=== PATIENT | male | born 1975 | race Caucasian/White ===

== ENCOUNTER 2020-10-26 10:09 | Emergency (ER) | payer SELFPAY ==
[2020-10-26 10:15] VITALS: BP 135/103; PULSE 94; RESP 16; TEMP 36.3; O2SAT 100; BMI 24.4
--- NOTE | 2020-10-26 10:31 | ED_ITS ---
HPI - Extremity Problem General: Chief complaint: Extremity Injury, Upper Stated complaint: Shoulder Pain Time Seen by Provider: 10/26/20 10:19 History of Present Illness: HPI Narrative: Patient comes in with left shoulder discomfort. Patient reports stacking wood yesterday and thinks he might of strained his shoulder. Patient has discomfort in the left shoulder and in the left side of his neck. Patient is guarded with range of motion of the neck. Patient denies any fall or other injury. Patient reports pain was worse this morning. Review of Systems General: Reports: 10 or more systems reviewed and unremarkable except in HPI and below Musc: Reports: neck pain and extremity pain Physical Exam Const: COMMON NORMALS: no acute distress and patient oriented x3 GENERAL APPEARANCE: cooperative HENMT: COMMON NORMALS: normocephalic, TM's normal bilaterally and Normal external nose present HEAD & SCALP: normal to inspection and normocephalic NOSE: Normal external nose present TYMPANIC MEMBRANE: TM's normal bilaterally MOUTH: Normal oral and palatal mucosa present Eye: GENERAL EYE: appearance normal, both eyes and all related structures Neck/C-Spine: COMMON NORMALS: full ROM (Guarded rotation to the left.) OTHER: Muscle tenderness to the left paraspinous muscles. Chest: COMMONS NORMALS: normal inspection of the chest Resp: COMMON NORMALS: normal respiratory effort EFFORT & INSPECTION: Yes able to speak in complete sentences Cardio: COMMON NORMALS: regular rate and regular rhythm RATE: regular rate RHYTHM: regular rhythm GI: COMMON NORMALS: non-tender : COMMON NORMALS: Yes no CVA tenderness BLADDER/KIDNEY EXAM: Yes no CVA tenderness Back/Pelvis: COMMON NORMALS: no CVA tenderness and thoracic and lumbar spine normal to inspection Extremity: NARRATIVE EXTREMITY EXAM: Normal range of motion of the left shoulder, mild tenderness in the trapezius. Neuro: COMMON NORMALS: patient oriented x3 and moves all extremities Psych: COMMON NORMALS: mental status grossly normal and cooperative Skin: COMMON NORMALS: no rashes or lesions noted GENERAL SKIN EXAM: no rashes or lesions noted Course Vital Signs: Vital signs: Vital Signs Temperature 97.3 F L 10/26/20 10:15 Pulse Rate 94 10/26/20 10:15 Respiratory Rate 16 10/26/20 10:15 Blood Pressure 135/103 10/26/20 10:15 Pulse Oximetry 100 12/15/20 10:15 MDM - Extremity (Nontraumatic) MDM Narrative: Medical decision making narrative: Patient presents with left side neck and left shoulder pain. Distal pulses and sensation is intact. Exam otherwise is normal. Differential diagnosis includes muscle strain, cervical radiculopathy, rotator cuff injury. Suspect muscle strain due to patient's activity followed by rest. Recommended gentle range of motion and stretching exercises. Patient was prescribed ketorolac and cyclobenzaprine. Patient was given injection of ketorolac and orphenadrine in the emergency room. Encourage plenty of fluids and follow-up with primary care for further evaluation. Patient reported understanding. Discharge Plan Discharge Patient Disposition: Home Clinical Impression: Left shoulder strain Qualifiers: Encounter type: initial encounter Qualified Code(s): S46.912A - Strain of unspecified muscle, fascia and tendon at shoulder and upper arm level, left arm, initial encounter Condition: Stable Prescriptions: New ketorolac 10 mg tablet 10 mg PO Q6H PRN (Reason: pain) 3 Days Qty: 12 RF: 0 cyclobenzaprine 5 mg tablet 5 mg PO TID PRN (Reason: muscle spasm) Qty: 20 RF: 0 Discharge Orders: Discharge ED (Routine); Ordered 10/26/20 Ordered By: Michael Toledo Discharge Diet: Usual diet Discharge Activity: Increase activity as tolerated Patient Instructions: Muscle Strain (ED) Activity Restrictions/Additional Instructions: Activity as tolerated. Gentle stretching and range of motion exercises. Muscle rub or liniment for further comfort relief. Ice pack or heat for further comfort. Follow-up with primary care as needed. Return to the emergency department for new concerns. Stand Alone Forms: Work/School Release Coding Level of Care Code ED Nursing Agency Manager for Fanny Cardoza
[2020-10-26] MEDS: orphenadrine 30 mg/mL Inj 2 mL 60 MG IM (10:33)
[2020-10-26] MEDS: ketorolac 30 mg/mL INJ IM (10:34)
[2020-10-26 10:40] VITALS: BP 135/105; PULSE 103; RESP 18; O2SAT 99
== END 2020-10-26 10:45 | disposition home or self-care (01) ==
PROVIDERS: Emergency Provider Nurse Practitioner Family
DX: S46.912A Strain of unspecified muscle, fascia and tendon at shoulder and upper arm level, left arm, initial encounter (principal); X50.9XXA Other and unspecified overexertion or strenuous movements or postures, initial encounter
CPT/HCPCS: 12345; 96372; 99281; 99283; J1885; J2360

== ENCOUNTER 2024-06-17 09:49 | Inpatient (IN) | payer SELFPAY ==
--- NOTE | 2024-06-17 09:58 | ED_ITS ---
HPI - Alcohol 2 General: Chief Complaint: Alcohol Stated Complaint: ETOH N/V Time Seen by Provider: 06/17/24 09:51 Source: patient and EMS Mode of arrival: EMS Limitations: no limitations History of Present Illness: Patient is a 48-year-old male who presents to ED today for evaluation of alcohol withdrawal . States he is a longstanding alcoholic. Patient states he has been on a nguyễn over the past week after his left him. He states he is currently homeless. He states his last drink was this morning but feels like he is currently withdrawing. He was given Zofran en route by EMS and is not currently having any vomiting at the time of my examination. When asked, patient tells me he feels suicidal with a plan to jump off of a bridge. 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 Chronic alcohol use: Yes Previous visits for alcohol intoxication: No Recent trauma: No Associated symptoms: Reports no associated symptoms, depression, nausea and suicidal ideation; Deny abdominal pain or vomiting Treatments prior to arrival: anti-emetics Review of Systems 2 Const: Denies: fever(s), chills, body aches, fatigue or malaise Eyes: Denies: change in vision, blurry vision, photophobia, floaters or seeing flashes Card: Denies: chest pain Resp: Denies: dyspnea GI: Reports: nausea; Denies: abdominal pain, vomiting or diarrhea Musc: Denies: neck pain, back pain, extremity pain or joint pain Skin/Breast: Denies: rash Neuro: Denies: headache(s), numbness in extremities, weakness in extremities, sensory changes or dizziness Psych: Reports: anxiety, depression, hopelessness and suicidal ideation; Denies: visual hallucinations, auditory hallucinations or homicidal ideation Physical Exam 2 Const: COMMON NORMALS: no acute distress, average body habitus, patient oriented x3, no limitations and alert GENERAL APPEARANCE: cooperative and well developed ORIENTATION/CONSCIOUSNESS: Yes awake, Yes oriented to person, Yes oriented to place and Yes oriented to time HENMT: COMMON NORMALS: normocephalic and atraumatic HEAD & SCALP: n ormocephalic and atraumatic Eye: COMMON NORMALS: no scleral icterus Neck/C-Spine: COMMON NORMALS: full ROM, no lymphadenopathy, supple and no meningeal signs Chest: COMMONS NORMALS: normal inspection of the chest Resp: COMMON NORMALS: normal respiratory effort and clear to auscultation bilaterally AUSCULTATION: clear to auscultation bilaterally Cardio: COMMON NORMALS: regular rate and regular rhythm RATE: regular rate RHYTHM: regular rhythm GI: COMMON NORMALS: Normal to inspection, nondistended, normoactive bowel sounds present, Soft to palpation, non-tender, No hepatosplenomegaly present and no masses PALPATION: Yes Soft to palpation and Yes No hepatosplenomegaly present : COMMON NORMALS: Yes no CVA tenderness BLADDER/KIDNEY EXAM: Yes no CVA tenderness Back/Pelvis: COMMON NORMALS: no CVA tenderness and thoracic and lumbar spine normal to inspection Extremity: COMMON NORMALS: normal to inspection Neuro: RHINA COMA SCALE: document GCS findings [place] coma scale eye opening: Spontaneous Rhina coma scale verbal response: Orientated [place] coma scale motor response: Obey commands Rhina coma scale total score: 15 COMMON NORMALS: patient oriented x3, moves all extremities, no focal motor deficits and no sensory deficits noted SENSORIUM/ORIENTATION: Yes alert, Yes oriented to person, Yes oriented to place and Yes oriented to time MENINGEAL SIGNS: Yes no meningeal signs Psych: COMMON NORMALS: Normal thought process present, cooperative, speech normal, denies hallucinations and denies homicidal ideation ATTITUDE: Yes calm ACTIVITY/MOTOR BEHAVIOR: Yes appropriate eye contact SPEECH: Yes normal speech MOOD & AFFECT: Yes euthymic mood THOUGHT PROCESS: Normal thought process present THOUGHT CONTENT: Yes Suicidality present A TTENTION/CONCENTRATION: Yes attention grossly intact and Yes concentration grossly intact MEMORY/COGNITION: Yes memory grossly intact and Yes cognition grossly intact INSIGHT: Fair insight present (Psych) JUDGEMENT: Fair judgement present (Psych) Skin: COMMON NORMALS: no rashes or lesions noted GENERAL SKIN EXAM: no rashes or lesions noted Course 2 Consultations: Consultation #1: Dr. Abarca-accepts to NPU Consultation #2: Dr. Barksdale-discussed possibility of medical admit vs treating him with fluids/electrolyte replacement for alcoholic ketoacidosis; felt like we could give fluids here and repeat anion gap and see if this is improving; reassurance provided with his ABG Vital Signs: Vital signs: Vital Signs Temperature 97.9 F 06/17/24 10:14 Pulse Rate 114 H 06/17/24 14:26 Respiratory Rate 18 06/17/24 10:14 Blood Pressure 143/97 06/17/24 10:14 Pulse Oximetry 98 06/17/24 14:26 Oxygen Delivery Me thod Room Air 06/17/24 14:26 MDM - Alcohol Medical Decision Making Patient with chronic alcohol abuse as well as depression and suicidal ideations. He will be admitted to NPU. Most likely will need [facility] protocol for alcohol withdrawal. On his initial blood work he did have a significantly elevated anion gap (27.4) along with positive serum ketones concerning for alcoholic ketoacidosis. Ran case by Dr. Mesa as well as hospitalist Dr. Barksdale who felt we most likely could treat with fluids and electrolyte replacement here in the emergency department and repeat labs. He was given 2 g of magnesium as well as oral potassium. Repeat BMP showing his gap is now down to 20.8. Potassium elevated. He is cleared medically for NPU. Will place affidavit on chart. Medical Records I reviewed the patient's medical records. Lab Data I reviewed the patient's lab results. 06/17/24 13:18 06/17/24 15:40 Laboratory Results WBC 7.45 10^3/uL (3.29-11.43) 06/17/24 13:18 RBC 5.04 10^6/uL (3.85-5.65) 06/17/24 13:18 Hgb 15.10 g/dL (11.27-16.99) 06/17/24 13:18 Hct 42.2 % (37-53) 06/17/24 13:18 MCV 83.7 fl (82-101) 06/17/24 13:18 MCH 30.0 pg (27-33) 06/17/24 13:18 MCHC 35.8 g/dL (30-55) 06/17/24 13:18 RDW 13.2 % (12.1-15.1) 06/17/24 13:18 Plt Count 248 10^3/cmm (157-399) 06/17/24 13:18 MPV 9.8 fL (7.4-10.4) 06/17/24 13:18 Neut % (Auto) 77.5 % 06/17/24 13:18 Lymph % (Auto) 18.9 % 06/17/24 13:18 Walton % (Auto) 1.7 % 06/17/24 13:18 Eos % (Auto) 1.6 % 06/17/24 13:18 Baso % (Auto) 0.3 % 06/17/24 13:18 Neut # (Auto) 5.77 10^3/uL (1.8-7.7) 06/17/24 13:18 Lymph # (Auto) 1.4 10^3/uL (0.8-4.8) 06/17/24 13:18 Walton # (Auto) 0.1 10^3/uL (0.2-0.9) L 06/17/24 13:18 Eos # (Auto) 0.1 10^3/uL (0.0-0.8) 06/17/24 13:18 Baso # (Auto) 0.0 10^3/uL (0.0-0.1) 06/17/24 13:18 Nucleated RBC % (auto) 0 % 06/17/24 13:18 Nucleated RBCs # 0.0 /100WBC 06/17/24 13:18 Specimen Type Arterial 06/17/24 14:05 Sample Site Brachial, left 06/17/24 14:05 ABG pH 7.50 (7.35-7.45) H 06/17/24 14:05 ABG pCO2 29.4 mmHg (35-45) L 06/17/24 14:05 ABG pO2 96.6 mmHg (80.0-100.0) 06/17/24 14:05 ABG PO2/FiO2 Ratio 460 06/17/24 14:05 ABG HCO3 22.9 mmol/L (22-26) 06/17/24 14:05 ABG O2 Saturation 98.5 06/17/24 14:05 ABG Base Excess 0.8 mmol/L (-2.0-2.0) 06/17/24 14:05 Mateusz Test N/a 06/17/24 14:05 A-a O2 Gradient 1.9 mmHg (5-10) L 06/17/24 14:05 Hematocrit 45.4 % (42-52) 06/17/24 14:05 Hgb O2 Saturation 97.1 % (95-100) 06/17/24 14:05 Carboxyhemoglobin 1.2 %THgb (0.4-20.1) 06/17/24 14:05 Methemoglobin 0.2 % (0.4-1.5) L 06/17/24 14:05 Total Hemoglobin 14.8 g/dL (14-18) 06/17/24 14:05 Sodium 136.0 mmol/L (131-143) 06/17/24 14:05 Potassium 3.2 mmol/L (3.5-5.0) L 06/17/24 14:05 Glucose 123.0 mg/dL (70-115) H 06/17/24 14:05 Ionized Calcium 1.1 mmol/L (1.1-1.4) 06/17/24 14:05 O2 Delivery Device Room air 06/17/24 14:05 FiO2 21.0 % 06/17/24 14:05 Knuckler ID Amh 06/17/24 14:05 Sodium 135 mmol/L (136-145) L 06/17/24 15:40 Potassium 3.8 mmol/L (3.5-5.1) 06/17/24 15:40 Chloride 97 mmol/L (98-107) L 06/17/24 15:40 Carbon Dioxide 21 mmol/L (22-29) L 06/17/24 15:40 Anion Gap 20.8 (5-19) H 06/17/24 15:40 BUN 19 mg/dL (6-20) 06/17/24 15:40 Creatinine 0.9 mg/dL (0.7-1.2) 06/17/24 15:40 GFR Calculation 90.4 mL/min (90-130) 06/17/24 15:40 Glucose 82 mg/dL (65-115) 06/17/24 15:40 Calculated Osmolality 281 mOsm/kg (285-295) L 06/17/24 15:40 Calcium 8.4 mg/dL (8.5-10.5) L 06/17/24 15:40 Magnesium 1.3 mg/dL (1.7-2.3) L 06/17/24 13:18 Total Bilirubin 0.4 mg/dL (0.15-1.2) 06/17/24 13:18 AST 37 U/L (0-40) 06/17/24 13:18 ALT 25 U/L (0-41) 06/17/24 13:18 Alkaline Phosphatase 107 U/L (40-130) 06/17/24 13:18 Total Protein 6.8 g/dL (6.6-8.7) 06/17/24 13:18 Albumin 4.0 g/dL (3.5-5.2) 06/17/24 13:18 Globulin 2.8 g/dL (1.3-4.6) 06/17/24 13:18 Salicylates < 0.3 mg/dL (3-10) L 06/17/24 13:18 Urine Opiates Screen Negative ng/mL (Negative) 06/17/24 12:17 Acetaminophen < 5.0 ug/mL (10-30) L 06/17/24 13:18 Ur Barbiturates Screen Negative ng/mL (Negative) 06/17/24 12:17 Ur Phencyclidine Scrn Negative ng/mL (Negative) 06/17/24 12:17 Ur Amphetamines Screen Negative ng/mL (Negative) 06/17/24 12:17 U Benzodiazepines Scrn Negative ng/mL (Negative) 06/17/24 12:17 Urine Cocaine Screen Negative ng/mL (Negative) 06/17/24 12:17 U Marijuana (THC) Screen Positive ng/mL (Negative) H 06/17/24 12:17 Ethyl Alcohol 153 mg/dL (0-10) H 06/17/24 13:18 Serum Ketones Positive (Negative) H 06/17/24 13:18 No radiology studies performed this visit Discharge Plan Discharge Patient Disposition: Admitted As Inpatient Clinical Impression: Chronic alcohol abuse, Alcoholic ketoacidosis, Suicidal ideation, Homeless Condition: Stable Prescriptions: No Action No Known Home Medications Coding Level of Care Code ED Dynamic Balancer for Fanny Cardoza
--- NOTE | 2024-06-17 09:59 | ECG_ITS ---
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 Measurements Intervals [place] Rate: 78 P: 55 SD: 138 QRS: 58 QRSD: 77 T: 29 QT: 395 QTc: 450 Interpretive Statements SINUS RHYTHM No previous ECG available for comparison Electronically Signed On 06-17-2024 14:58:49 CDT by Agus Duran M.D. [id number]
[2024-06-17 10:14] VITALS: BP 143/97; PULSE 86; RESP 18; TEMP 36.6; O2SAT 99; BMI 29.2
[2024-06-17] MEDS: sodium chloride 0.9% 1,000 ML 999 ML IV ×2 (10:52→14:22)
[2024-06-17] MEDS: multivitamin therapeutic Tablet 1 TAB PO (10:54)
--- NOTE | 2024-06-17 10:54 | PC.PHAR ---
NO MEDS ON PT PROFILE, LAST MED FILLED IN 2019 FOR FLEXERIL 10MG
[2024-06-17 12:40] LABS: Amphetamines Screen Urine Negative (Negative); Barbiturates Screen Urine Negative (Negative); Benzodiazepines Screen Urine Negative (Negative); Cocaine Screen Urine Negative (Negative); Opiate Screen Urine Negative (Negative); PCP Screen Urine Negative (Negative); THC Screen Urine Positive (Negative)
[2024-06-17] MEDS: metoclopramide 5 mg/mL SDV 2 mL 10 MG IVP (13:07)
[2024-06-17 13:35] LABS: Basophils % 0.3 %; Eosinophils # 0.1 10^3/uL (0.0-0.8); Eosinophils % 1.6 %; Hematocrit 42.2 % (37-53); Lymphocytes # 1.4 10^3/uL (0.8-4.8); Lymphocytes % 18.9 %; Mean Corpuscular HGB Conc 35.8 g/dL (30-55); Mean Corpuscular Volume 83.7 fl (82-101); Mean Platelet Volume 9.8 fL (7.4-10.4); Monocytes # 0.1 10^3/uL (0.2-0.9); Monocytes % 1.7 %; Neutrophils # 5.77 10^3/uL (1.8-7.7); Neutrophils % 77.5 %; Nucleated Red Blood Cells % 0 %; Platelet Count 248 10^3/cmm (157-399); Red Blood Count 5.04 10^6/uL (3.85-5.65); Red Cell Distribution Width 13.2 % (12.1-15.1); White Blood Count 7.45 10^3/uL (3.29-11.43)
[2024-06-17 13:43] LABS: Alanine Aminotransferase 25 U/L (0-41); Alcohol Level 153 mg/dL (0-10); Alkaline Phosphatase 107 U/L (40-130); Anion Gap 27.4 (5-19); Aspartate Amino Transferase 37 U/L (0-40); Blood Urea Nitrogen 20 mg/dL (6-20); Calcium 8.6 mg/dL (8.5-10.5); Carbon Dioxide 17 mmol/L (22-29); Chloride 95 mmol/L (98-107); Creatinine Clr Calc Pharmacy 119.5245; Globulin 2.8 g/dL (1.3-4.6); Glomerular Filtration Rate 90.4 mL/min (90-130); Glucose 152 mg/dL (65-115); Osmolality Calculated 288 mOsm/kg (285-295); Potassium 3.4 mmol/L (3.5-5.1); Sodium 136 mmol/L (136-145); Total Bilirubin 0.4 mg/dL (0.15-1.2); Total Protein 6.8 g/dL (6.6-8.7)
[2024-06-17 13:46] LABS: Acetaminophen < 5.0 ug/mL (10-30); Salicylate < 0.3 mg/dL (3-10)
[2024-06-17 14:10] LABS: Ketone (Acetest) Serum Positive (Negative)
[2024-06-17 14:16] LABS: Blood Gas Operator Identificat AMH; Blood Gas Sample Site Brachial, left; Blood Gas Sample Type Arterial; Oxygen Device ROOM AIR
[2024-06-17 14:18] LABS: ABG PCO2 29.4 mmHg (35-45); Alveolar-Arterial Oxygen Gradi 1.9 mmHg (5-10); Arterial Blood Gas Hematocrit 45.4 % (42-52); Base Excess ABG 0.8 mmol/L (-2.0-2.0); Carboxyhemoglobin 1.2 %THgb (0.4-20.1); HCO3 ABG 22.9 mmol/L (22-26); HGB O2 Sat 97.1 % (95-100); Ionized Calcium Level - ABG 1.1 mmol/L (1.1-1.4); Methemoglobin 0.2 % (0.4-1.5); Oxygen Saturation ABG 98.5; PO2 ABG 96.6 mmHg (80.0-100.0); PO2 FiO2 Ratio Arterial Blood 460; Potassium Level - ABG 3.2 mmol/L (3.5-5.0); Total Hemoglobin 14.8 g/dL (14-18)
[2024-06-17] MEDS: potassium chloride ER 20 mEq Tablet 40 MEQ PO (14:22)
[2024-06-17 14:24] LABS: Magnesium 1.3 mg/dL (1.7-2.3)
[2024-06-17 14:26] VITALS: PULSE 114; O2SAT 98
[2024-06-17] MEDS: magnesium sulfate premix 2 GM/50 ML PIGGYBACK IV (14:50)
[2024-06-17] MEDS: LORazepam 2 mg/mL INJ 1 mL 1 MG IVP (14:50)
[2024-06-17 16:18] LABS: Blood Urea Nitrogen 19 mg/dL (6-20); Calcium 8.4 mg/dL (8.5-10.5); Carbon Dioxide 21 mmol/L (22-29); Chloride 97 mmol/L (98-107); Creatinine Clr Calc Pharmacy 119.5245; Glomerular Filtration Rate 90.4 mL/min (90-130); Glucose 82 mg/dL (65-115); Osmolality Calculated 281 mOsm/kg (285-295); Sodium 135 mmol/L (136-145)
[2024-06-17 16:21] LABS: Anion Gap 20.8 (5-19); Potassium 3.8 mmol/L (3.5-5.1)
[2024-06-17 19:19] VITALS: BP 129/88; PULSE 80; RESP 15; TEMP 36.4; O2SAT 99
[2024-06-17] MEDS: ondansetron 4 MG Tablet PO (19:46)
[2024-06-17 20:00] VITALS: BP 128/81; PULSE 68; RESP 15; TEMP 36.3; O2SAT 99
[2024-06-17] MEDS: LORazepam 2 mg Tablet PO (20:06)
[2024-06-17] MEDS: trazodone 50 mg Tablet PO (20:06)
[2024-06-17] MEDS: hyDROXYzine 25 mg Capsule 50 MG PO (20:41)
[2024-06-17 20:49] VITALS: BP 128/81; PULSE 68; RESP 15; TEMP 36.3; O2SAT 99
[2024-06-18] VITALS: BP 120/70; PULSE 66; RESP 15; TEMP 36.6; O2SAT 98
[2024-06-18 04:00] VITALS: BP 127/72; PULSE 77; RESP 15; TEMP 36.7; O2SAT 97
[2024-06-18] MEDS: ondansetron 4 MG Tablet PO (06:11)
[2024-06-18] MEDS: LORazepam 2 mg Tablet PO ×2 (06:11→09:09)
[2024-06-18 08:00] VITALS: BP 130/77; PULSE 65; RESP 18; TEMP 36.4; O2SAT 99
[2024-06-18] MEDS: multivitamin therapeutic Tablet 1 TAB PO (09:09)
[2024-06-18] MEDS: folic acid 1 mg Tablet PO (09:09)
[2024-06-18] MEDS: thiamine 100 mg Tablet PO (09:09)
[2024-06-18 12:00] VITALS: BP 123/92; PULSE 87; RESP 18; TEMP 36.6; O2SAT 97
[2024-06-18] MEDS: sertraline 50 mg Tablet PO (15:46)
[2024-06-18 16:00] VITALS: BP 144/92; PULSE 79; RESP 18; TEMP 37.2; O2SAT 97
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
[2024-06-18 20:00] VITALS: BP 117/66; PULSE 68; RESP 15; TEMP 36.7; O2SAT 95
[2024-06-18] MEDS: quetiapine 100 mg Tablet 200 MG PO (20:21)
[2024-06-19] VITALS: BP 127/82; PULSE 79; RESP 14; O2SAT 96
[2024-06-19 04:00] VITALS: BP 127/82; PULSE 73; RESP 13; O2SAT 95
[2024-06-19] MEDS: sertraline 50 mg Tablet PO (08:52)
[2024-06-19] MEDS: ondansetron 4 MG Tablet PO (08:52)
[2024-06-19] MEDS: thiamine 100 mg Tablet PO (08:53)
[2024-06-19] MEDS: folic acid 1 mg Tablet PO (08:53)
[2024-06-19] MEDS: multivitamin therapeutic Tablet 1 TAB PO (08:53)
[2024-06-19] MEDS: ibuprofen 600 mg Tablet PO (08:55)
[2024-06-19] MEDS: alum-mag-hydroxide-sime 30 mL UDC PO (13:45)
[2024-06-19 14:00] VITALS: BP 164/96; PULSE 64; RESP 16; TEMP 36.4; O2SAT 96
--- NOTE | 2024-06-19 14:35 | W.PM.NPUPNS ---
Subjective NPU Subjective: 48-year-old male admitted with significant issues with alcohol abuse and reports of suicidal ideation. The patient had reported continued depression. He reported that he had remained homeless but reported desire to potentially go to [facility] in [place] for further help with housing and to consider additional help for substance abuse issues. He reported no side effects from Zoloft and Seroquel. He had been compliant on the milieu. He was agreeable to considering medications to reduce his cravings for alcohol. He had reported having difficulties with remaining abstinence despite prior consequences from continued alcohol use. Mental Status Exam MSE Comments: Casually dressed white male with fair hygiene and normal gait with no evidence of any abnormal involuntary motor movements tics or tremors appreciated. His speech was normal in regards to rate rhythm and prosody. His thought process was linear logical and goal-directed. His thought content: He denied any homicidal or suicidal ideation. He did not appear to be responding to internal stimuli. He was alert and oriented to person place time and situation. There was evidence of mild psychomotor retardation. His mood was described as depressed. His affect was restricted in range and mood congruent. There was no evidence of delusional thinking. His recent ,remote memory were grossly intact. His insight was limited. His judgment was poor. His impulse control appeared poor as well. Vitals/I&O/Wt Last Vital Signs Temp 97.5 F L 06/19/24 14:00 Pulse 64 06/19/24 14:00 Resp 16 06/19/24 14:00 BP 164/96 06/19/24 14:00 Pulse Ox 96 06/19/24 14:00 O2 Del Method Room Air 06/19/24 04:00 Data NPU 06/17/24 13:18 06/17/24 15:40 A&P Assessment and plan (1) Depression, unspecified: (2) Chronic alcohol abuse: (3) Suicidal ideation: Plan 48-year-old white male with history of alcohol dependence admitted with depression and suicidal ideation with a history of significant alcohol related withdrawal symptoms. #1.? Engage patient in individual milieu and group therapy.? #2? Encourage sober living treatment after discharge at the highest level of care to which he is willing to commit. #3??? CIWA for alcohol withdrawal #4?? TO-15 minute checks? #5?? Continue zoloft 50mg daily, continue seroquel 200mg at night and add naltrexone 50mg daily. Involuntary Hold Information 96 Hour Hold: 96 Hour Involuntary Admission: No Attestations NPU Medical Necessity Statement*: Inpatient hospitalization is medically necessary and deemed to ?be ?the clinically appropriate intervention ?at this time.? We will monitor/initiate medications and make changes as indicated.? The patient?s likely length of stay 4-6 days. Coding Level of Care Code Acute Code for [facility] Fwd Diagnoses Depression, unspecified F32.A Chronic alcohol abuse F10.10 Suicidal ideation R45.851
[2024-06-19] MEDS: naltrexone hcl 50 mg Tablet PO (14:58)
[2024-06-19] MEDS: quetiapine 100 mg Tablet 200 MG PO (20:15)
[2024-06-19] MEDS: hyDROXYzine 25 mg Capsule 50 MG PO (20:15)
[2024-06-19] MEDS: trazodone 50 mg Tablet PO ×2 (20:15→22:18)
[2024-06-19 20:37] VITALS: BP 160/98; PULSE 80; RESP 18; TEMP 36.6; O2SAT 98
[2024-06-20 06:00] VITALS: BP 138/73; PULSE 68; RESP 18; TEMP 36.8; O2SAT 97
[2024-06-20] MEDS: naltrexone hcl 50 mg Tablet PO (08:42)
[2024-06-20] MEDS: folic acid 1 mg Tablet PO (08:43)
[2024-06-20] MEDS: multivitamin therapeutic Tablet 1 TAB PO (08:43)
[2024-06-20] MEDS: thiamine 100 mg Tablet PO (08:43)
[2024-06-20] MEDS: sertraline 50 mg Tablet PO (08:43)
[2024-06-20] MEDS: ondansetron 4 MG Tablet PO (09:36)
[2024-06-20] MEDS: alum-mag-hydroxide-sime 30 mL UDC PO (10:23)
--- NOTE | 2024-06-20 12:31 | P.NPUPN_ITS ---
Subjective NPU 2 Subjective: Patient presented today reporting that he is doing okay. He continues to work with the social work team on aftercare and possible sober living possibilities. He did have 1 come up but is not till next . We discussed continuing to look in the possibility of discharge on Sunday. He denies any side effects to medications. Mental Status Exam 2 MSE Comments: This is an overweight versus obese white male in hospital scrubs with limited grooming and eye contact. No abnormal movements except for mild psychomotor retardation. Cooperative with exam and mild to moderate distress. Speech was mostly normal rate and volume. Mood described as getting better, affect slightly subdued. Thought process mostly organized. Thought content: Patient denied current suicidal or homicidal ideation, there were no delusions reported or noted, he denies any auditory or visual hallucinations. Attention and concentration appeared intact and memory appear reliable but no more formally tested. He is alert and oriented x 3. Insight and judgment appeared fair and impulse control was improving. Vitals/I&O/Wt Last Vital Signs Temp 98.2 F 06/20/24 06:00 Pulse 68 06/20/24 06:00 Resp 18 06/20/24 06:00 BP 138/73 06/20/24 06:00 Pulse Ox 97 06/20/24 06:00 O2 Del Method Room Air 06/20/24 06:00 Data NPU 06/17/24 13:18 06/17/24 15:40 A&P Assessment and plan (1) Depression, unspecified: (2) Chronic alcohol abuse: (3) Suicidal ideation: Plan 48-year-old white male with history of alcohol dependence admitted with depression and suicidal ideation with a history of significant alcohol related withdrawal symptoms. #1.? Engage patient in individual milieu and group therapy.? #2? Encourage sober living treatment after discharge at the highest level of care to which he is willing to commit. #3???CIWA for alcohol withdrawal #4?? TO-15 minute checks? #5?? Continue zoloft 50mg daily, continue seroquel 200mg at night and add naltrexone 50mg daily. #6 Patient with a secured date for 06/26/2024 for sober living but is looking at options that may have him discharging on Sunday. Involuntary Hold Information 2 96 Hour Hold: 96 Hour Involuntary Admission: No Attestations NPU 2 Medical Necessity Statement*: Inpatient hospitalization is medically necessary and the clinically appropriate intervention ?at this time.? We will monitor/initiate medications and make changes as indicated.? The patient?s likely length of stay 3-5 days. Coding Level of Care Code Acute Code for [facility] Fwd Diagnoses Depression, unspecified F32.A Chronic alcohol abuse F10.10 Suicidal ideation R45.851
[2024-06-20 14:00] VITALS: BP 160/90; PULSE 84; RESP 18; TEMP 37.2; O2SAT 99
[2024-06-20] MEDS: OLANZapine 5 mg ODT PO (15:43)
[2024-06-20 16:20] VITALS: BP 139/100
[2024-06-20] MEDS: LORazepam 1 mg Tablet PO (16:35)
[2024-06-20 18:00] VITALS: BP 142/93
[2024-06-20 19:57] VITALS: BP 138/95; PULSE 70; RESP 20; TEMP 36.6; O2SAT 98
[2024-06-20] MEDS: trazodone 50 mg Tablet PO (20:04)
[2024-06-20] MEDS: quetiapine 100 mg Tablet 200 MG PO (20:04)
[2024-06-21 06:00] VITALS: BP 115/68; PULSE 67; RESP 20; TEMP 36.7; O2SAT 97
[2024-06-21] MEDS: sertraline 50 mg Tablet PO (08:31)
[2024-06-21] MEDS: naltrexone hcl 50 mg Tablet PO (08:31)
[2024-06-21] MEDS: thiamine 100 mg Tablet PO (08:31)
[2024-06-21] MEDS: multivitamin therapeutic Tablet 1 TAB PO (08:31)
[2024-06-21] MEDS: folic acid 1 mg Tablet PO (08:31)
[2024-06-21] MEDS: LORazepam 2 mg Tablet PO (10:42)
[2024-06-21 11:54] VITALS: BP 153/104; PULSE 66; RESP 18; TEMP 36.4; O2SAT 100
--- NOTE | 2024-06-21 12:08 | P.NPUPN_ITS ---
Subjective NPU 2 Subjective: Patient presented today reporting that things are going better and that he was feeling more optimistic about life moving forward. He feels happy that he has plans in place for a supportive environment that he has been to before in his life about 4 years ago. He reports that the only challenge will be what to do between Sunday and . We discussed working with the treatment team on Sunday to see what options were available. He denied any side effects of medications. Mental Status Exam 2 MSE Comments: This is an overweight versus obese white male in hospital scrubs with limited grooming and eye contact. No abnormal movements except for mild psychomotor retardation. Cooperative with exam and mild distress. Speech was mostly normal rate and volume. Mood described as getting better, affect slightly subdued. Thought process mostly organized. Thought content: Patient denied current suicidal or homicidal ideation, there were no delusions reported or noted, he denies any auditory or visual hallucinations. Attention and concentration appeared intact and memory appear reliable but no more formally tested. He is alert and oriented x 3. Insight and judgment appeared fair and impulse control was improving. Vitals/I&O/Wt Last Vital Signs Temp 97.6 F 06/21/24 11:54 Pulse 66 06/21/24 11:54 Resp 18 06/21/24 11:54 BP 153/104 06/21/24 11:54 Pulse Ox 100 06/21/24 11:54 O2 Del Method Room Air 06/21/24 06:00 Data NPU 06/17/24 13:18 06/17/24 15:40 A&P Assessment and plan (1) Depression, unspecified: (2) Chronic alcohol abuse: (3) Suicidal ideation: Plan 48-year-old white male with history of alcohol dependence admitted with depression and suicidal ideation with a history of significant alcohol related withdrawal symptoms. #1.? Engage patient in individual milieu and group therapy.? #2? Encourage sober living treatment after discharge at the highest level of care to which he is willing to commit. #3???CIWA for alcohol withdrawal #4?? TO-15 minute checks? #5?? Continue zoloft 50mg daily, continue seroquel 200mg at night and add naltrexone 50mg daily. #6 Patient with a secured date for 06/26/2024 for sober living but is looking at options that may have him discharging on Sunday. Involuntary Hold Information 2 96 Hour Hold: 96 Hour Involuntary Admission: No Attestations NPU 2 Medical Necessity Statement*: Inpatient hospitalization is medically necessary and the clinically appropriate intervention ?at this time.? We will monitor/initiate medications and make changes as indicated.? The patient?s likely length of stay 2-5 days. Coding Level of Care Code Acute Code for [facility] Fwd Diagnoses Depression, unspecified F32.A Chronic alcohol abuse F10.10 Suicidal ideation R45.851
[2024-06-21 14:00] VITALS: BP 156/107; PULSE 77; RESP 18; TEMP 36.6; O2SAT 98
[2024-06-21] MEDS: hyDROXYzine 25 mg Capsule 50 MG PO (20:11)
[2024-06-21] MEDS: trazodone 50 mg Tablet PO (20:11)
[2024-06-21] MEDS: quetiapine 100 mg Tablet 200 MG PO (20:11)
[2024-06-21 20:38] VITALS: BP 151/106; PULSE 79; RESP 20; TEMP 36.6; O2SAT 97
[2024-06-21] MEDS: haloperidol 5 mg Tablet PO (22:34)
[2024-06-22 06:00] VITALS: BP 123/85; PULSE 96; RESP 18; TEMP 36.8; O2SAT 97
[2024-06-22] MEDS: naltrexone hcl 50 mg Tablet PO (08:46)
[2024-06-22] MEDS: folic acid 1 mg Tablet PO (08:51)
[2024-06-22] MEDS: sertraline 50 mg Tablet PO (08:51)
[2024-06-22] MEDS: thiamine 100 mg Tablet PO (08:51)
[2024-06-22] MEDS: multivitamin therapeutic Tablet 1 TAB PO (08:51)
[2024-06-22] MEDS: ibuprofen 600 mg Tablet PO (10:13)
--- NOTE | 2024-06-22 12:15 | P.NPUPN_ITS ---
Subjective NPU 2 Subjective: Patient presented today reporting that he is feeling pretty good. He is anxious about what is going to do between tomorrow and the . We discussed working with the social work team tomorrow to figure out what the best plan is. We also talked about being positive about the fact that he already has an answer for what he can to do and where he is going to go he just needs to figure out what is going to happen for these next few days depending on whether that could be spent in the hospital still or not. We agreed we would wait to the social work team came tomorrow and look at those options before we decide what will happen next. He denied any side effects to the medication. Mental Status Exam 2 MSE Comments: This is an overweight versus obese white male in hospital scrubs with limited grooming and eye contact. No abnormal movements except for mild psychomotor retardation. Cooperative with exam and mild distress. Speech was mostly normal rate and volume. Mood described as getting better, affect slightly subdued. Thought process mostly organized. Thought content: Patient denied current suicidal or homicidal ideation, there were no delusions reported or noted, he denies any auditory or visual hallucinations. Attention and concentration appeared intact and memory appear reliable but no more formally tested. He is alert and oriented x 3. Insight and judgment appeared fair and impulse control was improving. Vitals/I&O/Wt Last Vital Signs Temp 98.2 F 06/22/24 06:00 Pulse 96 06/22/24 06:00 Resp 18 06/22/24 06:00 BP 123/85 06/22/24 06:00 Pulse Ox 97 06/22/24 06:00 O2 Del Method Room Air 06/22/24 06:00 Weight last 48 hrs Weight 91.535 kg Data NPU 06/17/24 13:18 06/17/24 15:40 A&P Assessment and plan (1) Depression, unspecified: (2) Chronic alcohol abuse: (3) Suicidal ideation: Plan 48-year-old white male with history of alcohol dependence admitted with depression and suicidal ideation with a history of significant alcohol related withdrawal symptoms. #1.? Engage patient in individual milieu and group therapy.? #2? Encourage sober living treatment after discharge at the highest level of care to which he is willing to commit. #3???CIWA for alcohol withdrawal #4?? TO-15 minute checks? #5?? Continue zoloft 50mg daily, continue seroquel 200mg at night and add naltrexone 50mg daily. #6 Patient with a secured date for 06/26/2024 for sober living but is looking at options that may have him discharging on Sunday. Involuntary Hold Information 2 96 Hour Hold: 96 Hour Involuntary Admission: No Attestations NPU 2 Medical Necessity Statement*: Inpatient hospitalization is medically necessary and the clinically appropriate intervention ?at this time.? We will monitor/initiate medications and make changes as indicated.? The patient?s likely length of stay 2-5 days. Coding Level of Care Code Acute Code for g Fwd Diagnoses Depression, unspecified F32.A Chronic alcohol abuse F10.10 Suicidal ideation R45.851
[2024-06-22 14:00] VITALS: BP 158/100; PULSE 80; RESP 16; TEMP 36.7; O2SAT 96
[2024-06-22] MEDS: OLANZapine 5 mg ODT PO (16:37)
[2024-06-22] MEDS: nicotine 2 mg Gum BUCCAL (19:32)
[2024-06-22] MEDS: quetiapine 100 mg Tablet 200 MG PO (20:02)
[2024-06-22] MEDS: trazodone 50 mg Tablet PO (20:03)
[2024-06-22 20:10] VITALS: BP 139/92; PULSE 68; RESP 18; TEMP 36.7; O2SAT 96
[2024-06-23 04:14] VITALS: BP 113/75; PULSE 90; RESP 18; O2SAT 97
[2024-06-23] MEDS: sertraline 50 mg Tablet PO (08:05)
[2024-06-23] MEDS: thiamine 100 mg Tablet PO (08:05)
[2024-06-23] MEDS: hyDROXYzine 25 mg Capsule 50 MG PO ×2 (08:09→22:33)
[2024-06-23] MEDS: multivitamin therapeutic Tablet 1 TAB PO (08:10)
[2024-06-23] MEDS: folic acid 1 mg Tablet PO (08:10)
[2024-06-23] MEDS: ibuprofen 600 mg Tablet PO (12:19)
[2024-06-23 13:45] VITALS: BP 155/93; PULSE 76; RESP 16; TEMP 36.6; O2SAT 99
[2024-06-23] MEDS: nicotine 2 mg Gum BUCCAL (18:55)
[2024-06-23] MEDS: quetiapine 100 mg Tablet 200 MG PO (18:56)
[2024-06-23] MEDS: trazodone 50 mg Tablet PO ×2 (18:57→20:35)
[2024-06-23 21:53] VITALS: BP 152/95; PULSE 70; RESP 15; TEMP 36.4; O2SAT 97
--- NOTE | 2024-06-23 22:26 | P.NPUPN_ITS ---
Subjective NPU 2 Subjective: Patient presented today reporting that he is feeling good. He feels very optimistic and positive about the fact that his bed date was moved up to tomorrow. He endorses feeling ready and optimistic that things will move forward in a positive way. He is very thankful about the treatment team supporting him in getting him to this destination. He denies any side effects to the medication and endorsed being ready to go tomorrow. Mental Status Exam 2 MSE Comments: This is an overweight versus obese white male in hospital scrubs with limited grooming and eye contact. No abnormal movements except for mild psychomotor retardation. Cooperative with exam and mild distress. Speech was mostly normal rate and volume. Mood described as getting better, affect slightly subdued. Thought process mostly organized. Thought content: Patient denied current suicidal or homicidal ideation, there were no delusions reported or noted, he denies any auditory or visual hallucinations. Attention and concentration appeared intact and memory appear reliable but no more formally tested. He is alert and oriented x 3. Insight and judgment appeared fair and impulse control was improving. Vitals/I&O/Wt Last Vital Signs Temp 97.5 F L 06/23/24 21:53 Pulse 70 06/23/24 21:53 Resp 15 06/23/24 21:53 BP 152/95 06/23/24 21:53 Pulse Ox 97 06/23/24 21:53 O2 Del Method Room Air 06/23/24 21:53 Data NPU 06/17/24 13:18 06/17/24 15:40 A&P Assessment and plan (1) Depression, unspecified: (2) Chronic alcohol abuse: (3) Suicidal ideation: Plan 48-year-old white male with history of alcohol dependence admitted with depression and suicidal ideation with a history of significant alcohol related withdrawal symptoms. #1.? Engage patient in individual milieu and group therapy.? #2? Encourage sober living treatment after discharge at the highest level of care to which he is willing to commit. #3???CIWA for alcohol withdrawal #4?? TO-15 minute checks? #5?? Continue zoloft 50mg daily, continue seroquel 200mg at night and add naltrexone 50mg daily. #6 Patient with a secured date for 06/24/2024 for sober living. Plan for discharge tomorrow. Involuntary Hold Information 2 96 Hour Hold: 96 Hour Involuntary Admission: No Attestations NPU 2 Medical Necessity Statement*: Inpatient hospitalization is medically necessary and the clinically appropriate intervention ?at this time.? We will monitor/initiate medications and make changes as indicated.? The patient?s likely length of stay 1 day. Coding Level of Care Code Acute Code for [facility] Fwd Diagnoses Depression, unspecified F32.A Chronic alcohol abuse F10.10 Suicidal ideation R45.851
[2024-06-23] MEDS: OLANZapine 5 mg ODT PO (22:33)
[2024-06-24 06:00] VITALS: BP 116/74; PULSE 79; RESP 15; TEMP 36.6; O2SAT 96
[2024-06-24] MEDS: ibuprofen 600 mg Tablet PO (07:59)
[2024-06-24] MEDS: multivitamin therapeutic Tablet 1 TAB PO (07:59)
[2024-06-24] MEDS: thiamine 100 mg Tablet PO (07:59)
[2024-06-24] MEDS: sertraline 50 mg Tablet PO (07:59)
[2024-06-24] MEDS: folic acid 1 mg Tablet PO (07:59)
--- NOTE | 2024-06-24 08:43 | PC.NURSE ---
Patient refused naltrexone this morning. He stated he doesn't like the way it makes him feel and that he hopes we never give that medication to anyone because of how rough it made him feel.
[2024-06-24 09:14] VITALS: BP 116/74; PULSE 79; RESP 15; TEMP 36.6; O2SAT 96
--- NOTE | 2024-06-24 10:27 | W.PM.NPUDCS ---
Diagnoses at Discharge Discharge Diagnosis (1) Depression, unspecified: Status: Acute (2) Chronic alcohol abuse: Status: Acute (3) Suicidal ideation: Status: Acute Reason for Visit Reason for Visit: ETOH N/V Involuntary Hold Information 96 Hour Hold: 96 Hour Involuntary Admission: No Mental Status Exam MSE Comments: This is an overweight versus obese white male in hospital scrubs with limited grooming and eye contact. No abnormal movements except for mild psychomotor retardation. Cooperative with exam and mild distress. Speech was mostly normal rate and volume. Mood described as getting better, affect slightly subdued. Thought process mostly organized. Thought content: Patient denied current suicidal or homicidal ideation, there were no delusions reported or noted, he denies any auditory or visual hallucinations. Attention and concentration appeared intact and memory appear reliable but no more formally tested. He is alert and oriented x 3. Insight and judgment appeared fair and impulse control was improving. Discharge Data Studies Completed and Pending: Laboratory Results WBC 7.45 10^3/uL (3.2 9-11.43) 06/17/24 13:18 RBC 5.04 10^6/uL (3.8 5-5.65) 06/17/24 13:18 Hgb 15.10 g/dL (11.27 -16.99) 06/17/24 13:18 Hct 42.2 % (37-53) 06/17/24 13:18 MCV 83.7 fl (82-101) 06/17/24 13:18 MCH 30.0 pg (27-33) 06/17/24 13:18 MCHC 35.8 g/dL (30-55) 06/17/24 13:18 RDW 13.2 % (12.1-15.1 ) 06/17/24 13:18 Plt Count 248 10^3/cmm (157 -399) 06/17/24 13:18 MPV 9.8 fL (7.4-10.4) 06/17/24 13:18 Neut % (Auto) 77.5 % 06/17/24 13:18 Lymph % (Auto) 18.9 % 06/17/24 13:18 [place] % (Auto) 1.7 % 06/17/24 13:18 Eos % (Auto) 1.6 % 06/17/24 13:18 Baso % (Auto) 0.3 % 06/17/24 13:18 Neut # (Auto) 5.77 10^3/uL (1.8 -7.7) 06/17/24 13:18 Lymph # (Auto) 1.4 10^3/uL (0.8- 4.8) 06/17/24 13:18 [place] # (Auto) 0.1 10^3/uL (0.2- 0.9) L 06/17/24 13:18 Eos # (Auto) 0.1 10^3/uL (0.0- 0.8) 06/17/24 13:18 Baso # (Auto) 0.0 10^3/uL (0.0- 0.1) 06/17/24 13:18 Nucleated RBC % (a uto) 0 % 06/17/24 13:18 Nucleated RBCs # 0.0 /100WBC 06/17/24 13:18 Specimen Type Arterial 06/17/24 14:05 Sample Site Brachial, left 06/17/24 14:05 ABG pH 7.50 (7.35-7.45) H 06/17/24 14:05 ABG pCO2 29.4 mmHg (35-45) L 06/17/24 14:05 ABG pO2 96.6 mmHg (80.0-1 00.0) 06/17/24 14:05 ABG PO2/FiO2 Ratio 460 06/17/24 14:05 ABG HCO3 22.9 mmol/L (22-2 6) 06/17/24 14:05 ABG O2 Saturation 98.5 06/17/24 14:05 ABG Base Excess 0.8 mmol/L (-2.0- 2.0) 06/17/24 14:05 Mateusz Test N/a 06/17/24 14:05 A-a O2 Gradient 1.9 mmHg (5-10) L 06/17/24 14:05 Hematocrit 45.4 % (42-52) 06/17/24 14:05 Hgb O2 Saturation 97.1 % (95-100) 06/17/24 14:05 Carboxyhemoglobin 1.2 %THgb (0.4-20 .1) 06/17/24 14:05 Methemoglobin 0.2 % (0.4-1.5) L 06/17/24 14:05 Total Hemoglobin 14.8 g/dL (14-18) 06/17/24 14:05 Sodium 136.0 mmol/L (131 -143) 06/17/24 14:05 Potassium 3.2 mmol/L (3.5-5 .0) L 06/17/24 14:05 Glucose 123.0 mg/dL (70-1 15) H 06/17/24 14:05 Ionized Calcium 1.1 mmol/L (1.1-1 .4) 06/17/24 14:05 O2 Delivery Device Room air 06/17/24 14:05 FiO2 21.0 % 06/17/24 14:05 Chair Frame Builder ID [id number] 06/17/24 14:05 Sodium 135 mmol/L (136-1 45) L 06/17/24 15:40 Potassium 3.8 mmol/L (3.5-5 .1) 06/17/24 15:40 Chloride 97 mmol/L (98-107 ) L 06/17/24 15:40 Carbon Dioxide 21 mmol/L (22-29) L 06/17/24 15:40 Anion Gap 20.8 (5-19) H 06/17/24 15:40 BUN 19 mg/dL (6-20) 06/17/24 15:40 Creatinine 0.9 mg/dL (0.7-1. 2) 06/17/24 15:40 GFR Calculation 90.4 mL/min (90-1 30) 06/17/24 15:40 Glucose 82 mg/dL (65-115) 06/17/24 15:40 Calculated Osmolal ity 281 mOsm/kg (285- 295) L 06/17/24 15:40 Calcium 8.4 mg/dL (8.5-10 .5) L 06/17/24 15:40 Magnesium 1.3 mg/dL (1.7-2. 3) L 06/17/24 13:18 Total Bilirubin 0.4 mg/dL (0.15-1 .2) 06/17/24 13:18 AST 37 U/L (0-40) 06/17/24 13:18 ALT 25 U/L (0-41) 06/17/24 13:18 Alkaline Phosphata se 107 U/L (40-130) 06/17/24 13:18 Total Protein 6.8 g/dL (6.6-8.7 ) 06/17/24 13:18 Albumin 4.0 g/dL (3.5-5.2 ) 06/17/24 13:18 Globulin 2.8 g/dL (1.3-4.6 ) 06/17/24 13:18 Salicylates < 0.3 mg/dL (3-10 ) L 06/17/24 13:18 Urine Opiates Scre en Negative ng/mL (N egative) 06/17/24 12:17 Acetaminophen < 5.0 ug/mL (10-3 0) L 06/17/24 13:18 Ur Barbiturates Sc reen Negative ng/mL (N egative) 06/17/24 12:17 Ur Phencyclidine S crn Negative ng/mL (N egative) 06/17/24 12:17 Ur Amphetamines Sc reen Negative ng/mL (N egative) 06/17/24 12:17 U Benzodiazepines Scrn Negative ng/mL (N egative) 06/17/24 12:17 Urine Cocaine Scre en Negative ng/mL (N egative) 06/17/24 12:17 U Marijuana (THC) Screen Positive ng/mL (N egative) H 06/17/24 12:17 Ethyl Alcohol 153 mg/dL (0-10) H 06/17/24 13:18 Serum Ketones Positive (Negati ve) H 06/17/24 13:18 Vitals: Last Vital Signs Temp 97.8 F 06/24/24 09:14 Pulse 79 06/24/24 09:14 Resp 15 06/24/24 09:14 BP 116/74 06/24/24 09:14 Pulse Ox 96 06/24/24 09:14 O2 Del Method Room Air 06/24/24 06:00 Discharge Plan Discharge Patient Disposition: Home Condition: Stable Prescriptions: New trazodone 50 mg Tablet 50 mg PO BEDTIME PRN (Reason: Sleep) 30 Days Qty: 30 1RF naltrexone 50 mg Tablet 50 mg PO DAILY 30 Days Qty: 30 1RF quetiapine 100 mg Tablet 200 mg PO BEDTIME 30 Days Qty: 60 1RF sertraline 50 mg Tablet 50 mg PO DAILY 30 Days Qty: 30 1RF hydroxyzine pamoate 25 mg Capsule 50 mg PO Q6H PRN (Reason: Anxiety) 30 Days Qty: 120 1RF Vitamin B-1 (mononitrate) 100 mg Tablet 100 mg PO DAILY 30 Days Qty: 30 1RF Discharge Orders: Discharge Order (Routine); Ordered 06/24/24 Ordered By: Juan Reina Referrals: [facility] [Other] - 06/24/24 2:00 pm [facility] [Other] - 4-7 days (Walk in for intake Sunday to Sunday 8:00 AM TO 5:00 PM. ) Discharge Diet: Regular Discharge Activity: Resume usual activity Patient Instructions: Alcohol Abuse, Depression (DC), Suicide Prevention (DC), Opioid Safety Discharge Attestations NPU Time Spent in Discharge Care*: less than 30 min Specific Discharge Activities: Specific discharge activities: educating patient, discussing with case management manager/social workers/dc planners, documenting/other paperwork and evaluating patient/reviewing data Coding Level of Care Code Acute Code for [facility] Fwd Diagnoses Depression, unspecified F32.A Chronic alcohol abuse F10.10 Suicidal ideation R45.851
== END 2024-06-24 11:13 | disposition home or self-care (01) | DRG 881 ==
LOC: ER 16:37 → NP 17:43
PROVIDERS: Admitting Provider Psychiatry & Neurology Psychiatry; Emergency Provider Physician Assistant; Visit Provider Psychiatry & Neurology Psychiatry
DX: F32.A Depression, unspecified (principal); R45.851 Suicidal ideations; Z59.00 Homelessness unspecified; E87.29 Other acidosis; F10.129 Alcohol abuse with intoxication, unspecified; Y90.6 Blood alcohol level of 120-199 mg/100 ml; Z63.0 Problems in relationship with spouse or partner; Z62.810 Personal history of physical and sexual abuse in childhood
CPT/HCPCS: 36600; 80048; 80051; 80053; 80306; 80307; 82009; 82330; 82805; 83735; 85025; 93005; 96365; 96375; 97150; 97165; 99285; J2060; J2765; J3411; J3475; J7030; Q0162